=== PATIENT | female | born 1990 | race Hispanic/Latino ===

== ENCOUNTER 2017-07-03 10:21 | Emergency (ER) | payer MEDICARE, MEDICAID ==
--- NOTE | 2017-07-03 11:00 | C.PDOC ---
History Of Present Illness 27 year old female presents to the ED for evaluation of urticarial rash, nausea , vomiting and insomnia in setting of new medication. Patient reports starting lamictal 3 days ago for bipolar disorder and has had symptoms since then. Last dose of lamictal was yesterday and she notes that she is feeling slightly improved today. Patient also takes gabapentin. Time Seen by Provider: 07/03/17 10:39 Chief Complaint (Nursing): Medical Clearance History Per: Patient History/Exam Limitations: no limitations Onset/Duration Of Symptoms: Days Current Symptoms Are (Timing): Better Past Medical History Reviewed: Historical Data, Nursing Documentation, Vital Signs Vital Signs: Last Vital Signs Temp 97.6 F 07/03/17 13:22 Pulse 66 07/03/17 13:22 Resp 18 07/03/17 13:22 BP 108/72 07/03/17 13:22 Pulse Ox 100 07/03/17 13:40 - Medical History PMH: Bipolar Disorder Surgical History: Tonsillectomy Family History: States: Unknown Family Hx - Social History Hx Alcohol Use: Yes Hx Substance Use: No - Immunization History Hx Tetanus Toxoid Vaccination: No Hx Influenza Vaccination: No Hx Pneumococcal Vaccination: No Review Of Systems Constitutional: Positive for: Other (Insomnia ) Gastrointestinal: Positive for: Nausea, Vomiting Skin: Positive for: Rash Physical Exam - Physical Exam Appears: Non-toxic, No Acute Distress Skin: Warm, Dry, Rash (Urticarial rash primarily on arms ) Head: Atraumatic, Normacephalic Eye(s): bilateral: Normal Inspection, PERRL, EOMI Throat: Other (No difficulty swallowing, Voice normal) Cardiovascular: Rhythm Regular (Regular Rate) Respiratory: Normal Breath Sounds Gastrointestinal/Abdominal: Other (No active vomiting ) Neurological/Psych: Oriented x3, Normal Speech ED Course And Treatment - Laboratory Results Result Diagrams: 07/03/17 11:21 07/03/17 11:21 O2 Sat by Pulse Oximetry: 100 Medical Decision Making Medical Decision Making: Labs ordered. Patient given benadryl, pepcid, and zofran. She is feeling improved. Will discharge home. Disposition - Disposition Disposition: HOME/ ROUTINE Disposition Time: 13:36 Condition: STABLE Additional Instructions: Follow up with PMD and Psychiatrist within 1-2 days. Return to ED if feel worse. Prescriptions: DiphenhydrAMINE [Benadryl] 25 mg PO .Q4-6 H #30 cap Famotidine [Pepcid] 20 mg PO BID #20 tab Ondansetron [Zofran Odt] 1 - 2 tab PO .Q4-6H PRN #20 odt PRN Reason: Nausea/Vomiting Instructions: Urticaria (ED), Adverse Drug Reaction (ED) Forms: [employer] [facility] ([place]) - Clinical Impression Clinical Impression: Adverse drug reaction, Urticaria - Scribe Statement The provider has reviewed the documentation as recorded by the Scribareli Mahajan
[2017-07-03] MEDS ORDERED: Sodium Chloride 0.9% 1,000 ML IV STA (11:08)
[2017-07-03] MEDS ORDERED: DiphenhydrAMINE 50 mg/ml Inj IVP STA (11:09)
[2017-07-03] MEDS ORDERED: DiphenhydrAMINE 50 mg/ml Inj ONE (11:23)
[2017-07-03] MEDS ORDERED: Sodium Chloride 0.9% 1,000 ML ONE (11:24)
[2017-07-03 11:41] LABS: CHLORIDE 102 mmol/L (98-107); SODIUM 135 mmol/L (132-148)
[2017-07-03 11:42] LABS: BASO % 0.3 % (0.0-2.0); EOS # 0.1 K/uL (0.0-0.7); EOS % 1.7 % (0.0-4.0); HEMATOCRIT 40.2 % (34.0-47.0); LYMPH # 2.1 K/uL (1.0-4.3); LYMPH % 26.8 % (20.0-40.0); MEAN CELL VOLUME 95.2 fL (81.0-99.0); MEAN CORPUSCULAR HEMOGLOBIN 31.7 pg (27.0-31.0); MEAN CORPUSCULAR HGB CONC 33.3 g/dL (33.0-37.0); MEAN PLATELET VOLUME 9.3 fL (7.2-11.7); MONO # 1.2 K/uL (0.0-0.8); MONO % 14.8 % (0.0-10.0); RED CELL DISTRIBUTION WIDTH 13.4 % (11.5-14.5)
[2017-07-03 11:43] LABS: GFR AFRICAN-AMERICAN > 60
[2017-07-03 11:44] LABS: ALB/GLOB RATIO 1.1 (1.0-2.1); ALKALINE PHOSPHATASE 55 U/L (38-126); ALT/SGPT 114 U/L (9-52); AST/SGOT 83 U/L (14-36); BILIRUBIN,TOTAL 0.4 mg/dL (0.2-1.3); BLOOD UREA NITROGEN 9 mg/dL (7-17); CARBON DIOXIDE 23 mmol/L (22-30); GLUCOSE,RANDOM 86 mg/dL (65-105); TOTAL PROTEIN 7.9 g/dL (6.3-8.3)
[2017-07-03 11:45] LABS: CALCIUM 8.8 mg/dl (8.6-10.4)
[2017-07-03 11:59] LABS: RBC URINE 4 /hpf (0-3); URINE BILIRUBIN NEGATIVE (NEGATIVE); URINE BLOOD NEGATIVE (NEGATIVE); URINE COLOR Yellow (YELLOW); URINE GLUCOSE (UA) NORMAL (Normal); URINE KETONE NEGATIVE (NEGATIVE); URINE LEUKOCYTE ESTERASE 3+ Leu/uL (Negative); URINE PROTEIN NEGATIVE (NEGATIVE); URINE UROBILINOGEN NORMAL mg/dL (0.2-1.0); WBC URINE 20 /hpf (0-5)
[2017-07-03 13:00] VITALS: O2SAT 100
[2017-07-03 13:22] VITALS: BP 108/72; PULSE 66; RESP 18; TEMP 97.6
== END 2017-07-03 13:50 | disposition home or self-care (01) ==
LOC: C.ER 10:21
DX: L50.9 Urticaria, unspecified (principal); T50.995A Adverse effect of other drugs, medicaments and biological substances, initial encounter; Y92.89 Other specified places as the place of occurrence of the external cause
CPT/HCPCS: 80053; 80171; 81001; 84703; 85025; 96361; 96374; 96375; 99283; C9113; J1200; J2405; J7040

== ENCOUNTER 2018-03-13 15:13 | Emergency (ER) | payer MEDICARE, MEDICAID ==
[2018-03-13 15:21] VITALS: RESP 18
[2018-03-13] MEDS ORDERED: Bacitracin 500 Units/gm Oint Foilpak UD TOP ONE (17:18)
[2018-03-13] MEDS ORDERED: Bacitracin 500 Units/gm Oint Foilpak UD ONE (17:25)
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
[2018-03-13 18:07] VITALS: BP 113/77; PULSE 69; TEMP 98.6; O2SAT 100
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
== END 2018-03-13 18:02 | disposition home or self-care (01) ==
LOC: C.ER 15:13
DX: S90.32XA Contusion of left foot, initial encounter (principal); V00.838A Other accident with motorized mobility scooter, initial encounter; Y92.9 Unspecified place or not applicable